=== PATIENT | male | born 1940 | race Caucasian/White ===

== ENCOUNTER 2018-03-25 17:21 | Inpatient (IN) ==
[2018-03-26] MEDS ORDERED: Acetaminophen 325 MG Tablet PO PRN (04:56)
--- NOTE | 2018-03-26 04:56 | P.HPIM ---
History of Present Illness Primary Care Physician: UNKNOWN History of Present Illness: 78-year-old male with a history of hyperlipidemia, hypertension and diabetes presented to the ED with complaints of a foot injury. Patient states that he was at work and using a saw and it kicked back and the saw ended up running over the dorsal side of his left foot. He is unable to move his left great toe. He states the pain is a throbbing, intermittent, 3/10, worse with touch and no associated symptoms. He denies any associated chest pain, shortness of breath, fever or chills. Patient states he takes about 20 medications but does not know the names and doses. Inpatient Certification: I certify that the inpatient services were ordered in accordance with Medicare regulations governing the order. This includes certification that hospital inpatient services are reasonable and necessary and in the case of services not specified as inpatient-only under 42 CFR 419.22(n), that they are appropriately provided as inpatient services in accordance to with the 2-midnight benchmark under 43 CFR 412.3(e) Review of Systems All other systems reviewed negative except as stated in HPI PMFSH - History History Provided By: Patient - Medical History Medical History: Medical History (Last Reviewed 03/26/18 @ 05:33 by HIRA Haynes) Chronic pain Hyperlipidemia Hypertension Neoplasm of head Type 2 diabetes mellitus - Surgical History Surgical History: Surgical History (Last Reviewed 03/26/18 @ 05:33 by HIRA Haynes) H/O hand surgery H/O knee surgery - Family History Family History: Family History (Last Reviewed 03/26/18 @ 05:33 by HIRA Haynes) Other HTN (hypertension) - Social History I have reviewed the patient's Social History: Yes - Tobacco History Second Hand Smoke Exposure: No Smoking Status: Never smoker - Alcohol History How Often Do You Have a Drink Containing Alcohol: Never - Substance Use History Substance History: No History of Abuse Medications and Allergies Allergies Allergy/AdvReac Type Severity Reaction Status Date / Time No Known Allergies Allergy Verified 03/26/18 04:50 Home Medications Medication Instructions Recorded Confirmed Type 20+ Medications 03/25/18 History Exam Narrative: GENERAL: This is a well-nourished, well-developed patient, in no apparent distress. SKIN: Laceration over 1st metatarsal joint on left foot, steri strips intact EYES: Pupils equal round and reactive, no scleral edema or drainage CARDIOVASCULAR: Regular rate and rhythm without murmurs, gallops, or rubs. RESPIRATORY: Clear to auscultation. Breath sounds equal bilaterally. No wheezes , rales, or rhonchi. GASTROINTESTINAL: Abdomen soft, non-tender, nondistended. Normal active bowel sounds MUSCULOSKELETAL: left great toe edema. no movement to left great toe NEURO: Alert & Oriented x4 to person, place, time, situation. Moves all ext x4 Caprini VTE Risk Assessment Caprini VTE Risk Assessment: Moderate/High Risk (score >= 2) Caprini Risk Assessment Model: Point Value = 1 Point Value = 2 Point Value = 3 Point Value = 5 Age 41-60 Minor surgery BMI > 25 kg/m2 Swollen legs Varicose veins or History of unexplained or recurrent spontaneous Oral contraceptives or hormone replacement Sepsis (< 1 month) Serious lung disease, including pneumonia (< 1 month) Abnormal pulmonary function Acute myocardial infarction Congestive heart failure (< 1 month) History of inflammatory bowel disease Medical patient at bed rest Age 61-74 Arthroscopic surgery Major open surgery (> 45 min) Laparoscopic surgery (> 45 min) Malignancy Confined to bed (> 72 hours) Immobilizing plaster cast Central venous access Age >= 75 History of VTE Family history of VTE Factor V Leiden Prothrombin [id number] Lupus anticoagulant Anticardiolipin antibodies Elevated serum homocysteine Heparin-induced thrombocytopenia Other congenital or acquired thrombophilia Stroke (< 1 month) Elective arthroplasty Hip, pelvis, or leg fracture Acute spinal cord injury (< 1 month) Prophylaxis Regimen: Total Risk Factor Score Risk Level Prophylaxis Regimen 0-1 Low Early ambulation 2 Moderate Order ONE of the following: *Sequential Compression Device (SCD) *Heparin 5000 units SQ BID 3-4 Higher Order ONE of the following medications: *Heparin 5000 units SQ TID *Enoxaparin/Lovenox 40 mg SQ daily (WT < 150 kg, CrCl > 30 mL/min) *Enoxaparin/Lovenox 30 mg SQ daily (WT < 150 kg, CrCl > 10-29 mL/min) *Enoxaparin/Lovenox 30 mg SQ BID (WT < 150 kg, CrCl > 30 mL/min) AND/OR *Sequential Compression Device (SCD) 5 or more Highest Order ONE of the following medications: *Heparin 5000 units SQ TID (Preferred with Epidurals) *Enoxaparin/Lovenox 40 mg SQ daily (WT < 150 kg, CrCl > 30 mL/min) *Enoxaparin/Lovenox 30 mg SQ daily (WT < 150 kg, CrCl > 10-29 mL/min) *Enoxaparin/Lovenox 30 mg SQ BID (WT < 150 kg, CrCl > 30 mL/min) AND *Sequential Compression Device (SCD) Assessment and Plan - Plan Left great toe laceration, possible tendon rupture Foot x-ray reviewed and shows no fracture Podiatry consulted, OR in a.m. N.p.o., IVF Pain management with IV morphine Ancef IV for antibiotics Hypertension, chronic We will resume home medications when med rec is updated Diabetes, chronic Accu-Cheks with sliding scale insulin DVT prophylaxis: SCDs Discussed Condition With: RN and patient
[2018-03-26] MEDS ORDERED: Dextrose 50% in Water 50 ML Vial IV.PUSH PRN (04:59)
[2018-03-26] MEDS ORDERED: Sod Chloride 0.9% Inj 1,000 ML IV.CONT SCH (05:00)
[2018-03-26] MEDS ORDERED: Chlorhexidine Gluconate 2% 1 Pack (2 Cloths) TOPICAL ONE (05:22)
[2018-03-26] MEDS ORDERED: Sodium Chlor 0.9% Inj 500 ML IV.SIG SCH (06:00)
[2018-03-26] MEDS: ceFAZolin Inj 2,000 MG in Sodium Chlor 0.9% Inj 80 ML IV.SIG SCH ×3 (06:50→22:53)
[2018-03-26] MEDS: Insulin NovoLOG Aspart Correctional Sugar Inj SQ SCH ×4 (08:00→21:12)
[2018-03-26] MEDS ORDERED: Lidocaine PF 1% Inj 5 ML Syringe INFILTRATN ONE (11:01)
[2018-03-26] MEDS ORDERED: Bupivacaine PF 0.25% Inj 30 ML Vial ONE (11:06)
[2018-03-26] MEDS ORDERED: Neomycin/Polymyxin G.U. Irrigant 1 ML Ampul ONE (11:08)
--- NOTE | 2018-03-26 11:40 | P.PN ---
Subjective Interval history: Patient is being evaluated immediately post-op. Pain is well controlled. Denies nausea and emesis. Desires D/C as soon as possible to be able to return home to care for his family. No other concerns. Physical Exam Vital signs: Vital Signs 03/26/18 05:05 03/26/18 08:00 Temperature 97.8 F 98.2 F Pulse Rate 58 L 58 L Respiratory Rate 18 18 Blood Pressure 142/56 H 150/68 H Pulse Oximetry 98 98 Intake & Output 03/25/18 03/26/18 03/26/18 18:59 06:59 18:59 Intake Total 100 / 100 Output Total 250 / 250 Balance -150 / -150 Weight 88.6 kg Intake: IV 100 / 100 Ancef Inj 2,000 MG In NS Inj 80 100 / 100 ML @ 200 mls/hr IV.SIG Q8H [facility] Rx#:[id number] Output: Urine 250 / 250 Other: # Voids 1 Date of Last Bowel Movement 03/25/18 03/25/18 Weight On Admission 88.6 kg Narrative: GENERAL: well nourished male, in NAD SKIN: Warm and dry. HEAD: Normocephalic. EYES: No scleral icterus. No injection or drainage. NECK: Supple, trachea midline. No JVD or lymphadenopathy. CARDIOVASCULAR: Regular rate and rhythm without murmurs, gallops, or rubs. RESPIRATORY: Breath sounds equal bilaterally. No accessory muscle use. GASTROINTESTINAL: Abdomen soft, non-tender, nondistended. MUSCULOSKELETAL: No cyanosis, or edema. BACK: Nontender without obvious deformity. No CVA tenderness. EXTREMITIES: L foot with brace in place, minimal edema. No cyanosis. Results - Labs Laboratory Results - last 24 hr 03/26/18 03/26/18 08:31 09:00 POC Glucose 92 Blood Type A Positive Blood Type Recheck Required Antibody Screen Negative - Imaging PER MRI OF L FOOT: Laceration/rupture of the extensor hallucis longus tendon at the level of the great toe MTP joint with approximately 3 cm retraction. Prominent surrounding dorsal soft tissue edema. Assessment and Plan - Assessment (1) Extensor tendon disruption Code(s): M67.89 - Other specified disorders of synovium and tendon, multiple sites Status: Resolved (2) HTN (hypertension) Code(s): I10 - Essential (primary) hypertension Status: Chronic (3) Diabetes type 2, uncontrolled Code(s): E11.65 - Type 2 diabetes mellitus with hyperglycemia Status: Chronic - Plan 78 y/o M with PMHx of DM, HTN, and HLD admitted for IP mgmt of Left Foot Extensor Tendon Disruption s/p surgical repair, POD#0, HD#1 1. POST OP CARE Managed by Ortho Manage pain with Morphine IV PRN Ancef IV for antibiotics started preop Appreciate assistance with mgmt 2. Hypertension, chronic: elevated as home meds were not continued, cont. home Lasix, Losartan, and Amlodipine. Cont. to monitor, asymptomatic. 3. Diabetes, Type II BS 92, cont. Home Galrgine 15U QHS, Glimepiride, and Accu-Cheks with sliding scale insulin 4. GERD: cont. home PPI 5. BPH: cont. home Alfuzosin. 6. Insomina: cont. hpme Trazodone. 7. HLD: cont. home statin 8. CPS: cont. Kevin and Methocarbamol 9. RLS: cont. home Pramipexole. 10. DVT prophylaxis: SCD's Code Status: full Discussed Condition With: patient
[2018-03-26] MEDS ORDERED: ceFAZolin 2 GM Premix Inj 2 GM/50 ML PIGGYBACK IV.SIG ONE (11:45)
[2018-03-26] MEDS ORDERED: fentaNYL Citrate Inj 100 MCG/2 ML Ampul ONE (12:05)
[2018-03-26] MEDS ORDERED: *morphine SULFATE 4 MG/ML PERIprocedure ONLY ONE (12:18)
--- NOTE | 2018-03-26 13:24 | MB ---
cc: Marleen Vidal DPM DATE: 03/26/2018 CHIEF COMPLAINT: Left foot laceration. HISTORY OF PRESENT ILLNESS: Mr. Krause is a 78-year-old male patient who presented to the emergency department last night and states that while he was working in his garage, a circular saw ran over the top of his foot and he has since been unable to move the great toe. He has minimal pain at this time. Denies any nausea, vomiting, fever, headaches or chills. PAST MEDICAL HISTORY: Includes chronic pain, hyperlipidemia, hypertension, neoplasm of the head and type 2 diabetes. PAST SURGICAL HISTORY: Includes an unknown hand and knee surgery. FAMILY HISTORY: Noncontributory. SOCIAL HISTORY: The patient denies any tobacco or alcohol abuse. Lives at home with family. VITAL SIGNS: Temperature 98.2, pulse rate 58, respiratory rate 18, blood pressure 150/68, pulse oximetry 98% O2 on room air. RADIOGRAPHIC DATA: X-rays are negative for any fractures. MRI report is pending, but shows a clear laceration of the EHL tendon. PHYSICAL EXAMINATION: The patient has palpable pulses. Capillary refill time is less than 3 seconds. Gross sensation is intact. There is an oblique laceration of the dorsal aspect of the metatarsophalangeal joint, which has been loosely reapproximated with stitches. The hallux is resting in a plantar flexed position. The patient is unable to dorsiflex or engage it. ASSESSMENT: Left foot extensor hallucis longus laceration. PLAN: 1. Surgical repair today. - N.p.o. - Consent signed. The procedure was explained. No guarantees given. - The patient will be nonweightbearing postoperatively and physical therapy will be ordered appropriately. JOYCE Kelly/ryan , 11:05 AM , 11:11 AM SHAYY
--- NOTE | 2018-03-26 15:43 | MP ---
cc: Marleen Vidal DPM DATE OF OPERATION: 03/26/2018 SURGEON: Marleen Vidal DPM TECHNOLOGY TRAINING ASSOCIATE: None. PREOPERATIVE DIAGNOSIS: Left extensor hallucis longus laceration. POSTOPERATIVE DIAGNOSIS: Left extensor hallucis longus laceration. PROCEDURE PERFORMED: Left extensor hallucis longus tendon repair. PATHOLOGY SENT: None. ANESTHESIA: General. HEMOSTASIS: Anatomical dissection. ESTIMATED BLOOD LOSS: 5 mL. MATERIALS USED: 4-0 FiberWire, 3-0 Prolene. COMPLICATIONS: None. INJECTABLES: None. INDICATIONS: Mr. Krause is a 78-year-old male patient who suffered a laceration of the extensor hallucis longus tendon with a circular saw. The tendon laceration was confirmed both clinically and on MRI. I spoke to the patient regarding the surgical repair as well as possible outcomes of the repair. The consent was signed. The procedure was explained. No guarantees were given. DESCRIPTION OF PROCEDURE: Under mild sedation, the patient was brought to the operating room and placed on the operating table in supine position. Following IV sedation, the foot was scrubbed, prepped and draped in the usual aseptic manner. Attention was directed to the dorsal aspect of the first metatarsophalangeal joint where an oblique laceration was noted. The sutures were removed and the area was cleansed with copious amounts of sterile saline. The distal stump of the extensor hallucis longus was easily identified; however, after thoroughly exploring the proximal aspect of the laceration and extending the laceration, the proximal stump could not be identified. The decision was made that extending the excision any farther without any clear signs of the proximal stump could create more complications. The extensor brevis tendon was intact, healthy and strong, so the decision was made to suture the distal stump of the extensor hallucis longus to the extensor brevis tendon. The toe was held in a rectus position throughout this portion of the procedure, and even once the toe was released, it remained in a neutral alignment without any signs of plantar flexion and no tension on the tendon. The area was again flushed with copious amounts of sterile saline. The skin was closed using 3-0 Prolene with minimal tension on the laceration line. A sterile dressing of Adaptic, 4 x 4's and a well-padded posterior splint were applied. The patient tolerated the procedure and the anesthesia well. He will recover in the PACU for a period of time before being discharged back to his room with written and oral postoperative instructions. JOYCE Kelly , 12:00 PM , 12:07 PM
--- NOTE | 2018-03-26 16:17 | MR ---
EXAM DATE: 03/26/2018 10:13 AM EDT AGE/SEX: 78 years / Male INDICATIONS: Trauma. Injury with a saw to dorsal left foot. Unable to move left great toe. CLINICAL DATA: This is the patient's initial encounter. Patient reports that signs and symptoms have been present for 1 day and indicates a pain score of 3/10. MEDICAL/SURGICAL HISTORY: Hypertension. Diabetes mellitus type II. Hypercholesterolemia. . Rodriguez nd and knee surgeries. COMPARISON: . TECHNIQUE: Multiplanar, multisequence MRI examination was performed without contrast. FINDINGS: Ill-defined dorsal superficial soft tissue edema. There is rupture of the extensor hallucis longus te ndon at the level of the metatarsophalangeal joint with retraction to the level of the mid metatarsal shaft. Tendon is retracted approximately 3 cm. All of the other visualized tendons are intact. Moderate-sized osteophytes of the great toe metatarsophalangeal joint and mild subchondral reactive b husam change of the great toe MTP joint. Mild osteoarthritic findings of the navicular cuneiform joint. Bone alignment within normal limits. No evidence of fracture. CONCLUSION: Laceration/rupture of the extensor hallucis longus tendon at the level of the great toe MTP joint wit h approximately 3 cm retraction. Prominent surrounding dorsal soft tissue edema. Electronically signed by: Karel Roach MD 03/26/2018 4:15 PM EDT
[2018-03-26] MEDS: Morphine Sulfate Inj 2 MG/ML Vial IV.PUSH PRN ×2 (17:47→22:52)
[2018-03-26] MEDS ORDERED: amLODIPine 5 MG Tablet PO ONE (19:15)
[2018-03-26] MEDS ORDERED: ALFUZOSIN PO SCH (19:30)
[2018-03-26] MEDS ORDERED: Furosemide 20 MG Tablet PO ONE (19:30)
[2018-03-26] MEDS ORDERED: Glimepiride 4 MG Tablet PO ONE ×2 (19:45)
[2018-03-26] MEDS ORDERED: Pantoprazole Sodium 20 MG DR Tablet PO ONE (19:45)
[2018-03-26] MEDS ORDERED: LOSARTAN 100 MG PO SCH (19:45)
[2018-03-26] MEDS ORDERED: MELATONIN 3 MG PO SCH (21:00)
[2018-03-26] MEDS ORDERED: Insulin Detemir Inj 1,000 UNIT/10 ML Vial SQ SCH (21:00)
[2018-03-26] MEDS ORDERED: traZODone 50 MG Tablet PO SCH (21:00)
[2018-03-26] MEDS ORDERED: Methocarbamol 500 MG Tablet PO SCH (21:00)
[2018-03-26] MEDS: Gabapentin 300 MG Capsule PO SCH (21:09)
[2018-03-27] MEDS: Sodium Chloride 0.45 % Inj 1,000 ML IV.CONT SCH ×3 (01:38→06:32)
[2018-03-27] MEDS: ceFAZolin Inj 2,000 MG in Sodium Chlor 0.9% Inj 80 ML IV.SIG SCH ×2 (05:48→14:30)
[2018-03-27] MEDS ORDERED: Glimepiride 4 MG Tablet PO SCH (07:00)
[2018-03-27] MEDS: Insulin NovoLOG Aspart Correctional Sugar Inj SQ SCH ×2 (08:09→12:21)
--- NOTE | 2018-03-27 08:32 | P.PNPOD ---
Subjective Interval history: Doing well no events overnight Physical Exam Vital signs: Vital Signs 03/26/18 11:58 03/26/18 12:00 03/26/18 16:00 Temperature 97.9 F 98 F 98.2 F Pulse Rate 66 78 65 Respiratory Rate 12 18 18 Blood Pressure 136/66 168/79 H 150/69 H Pulse Oximetry 100 96 98 03/26/18 20:00 03/26/18 20:05 03/27/18 00:06 Temperature 98.1 F Pulse Rate 69 76 64 Respiratory Rate 18 Blood Pressure 144/67 H Pulse Oximetry 99 03/27/18 00:25 03/27/18 02:00 03/27/18 05:23 Temperature 98.0 F 98.1 F Pulse Rate 68 65 Respiratory Rate 18 18 Blood Pressure 134/62 159/75 H Pulse Oximetry 95 98 Intake & Output 03/26/18 03/27/18 03/27/18 18:59 06:59 18:59 Intake Total 800 / 800 200 / 200 1050 / 1050 Output Total 510 / 510 950 / 950 Balance 290 / 290 -750 / -750 1050 / 1050 Intake: IV 200 / 200 200 / 200 1050 / 1050 Ancef Inj 2,000 MG In NS Inj 80 200 / 200 200 / 200 ML @ 200 mls/hr IV.SIG Q8H [facility] Rx#:[id number] Anesthesia Amount 600 / 600 Output: Urine 500 / 500 950 / 950 Estimated Blood Loss 10 Other: # Voids 1 Date of Last Bowel Movement 03/25/18 03/25/18 - Constitutional no acute distress - Neurological Alert and oriented x3 - Routine Extremities Exam Comments: Left lower extremity examined, splint clean dry and intact. Good capillary fill time noted to the digit good sensation intact no calf tenderness no swelling noted Medications and Allergies Active Medications: Active Medications Acetaminophen (Tylenol) 650 mg PO Q4H PRN PRN Reason: Temp > 100.4 Amlodipine Besylate (Norvasc) 5 mg PO DAILY [facility] Atorvastatin Calcium (Lipitor) 40 mg PO HS [facility] Last Admin: 03/26/18 21:09 Dose: 40 mg Dextrose (D50w Vial) 50 ml IV.PUSH UNSCH PRN PRN Reason: PER HYPOGLYCEMIA PROTOCOL Furosemide (Lasix) 20 mg PO DAILY [facility] Gabapentin (Neurontin) 600 mg PO BID [facility] Last Admin: 03/26/18 21:09 Dose: 600 mg Glimepiride (Amaryl) 4 mg PO DAILYAC [facility] Last Admin: 03/27/18 08:01 Dose: 4 mg Glucagon (Glucagon Inj) 1 mg OTHER PRN PRN PRN Reason: for Hypoglycemia Protocol Cefazolin Sodium 2,000 mg/ (Sodium Chloride) 100 mls @ 200 mls/hr IV.SIG Q8H [facility] Last Infusion: 03/27/18 06:32 Dose: Infused Sodium Chloride (1/2 Normal Saline Inj) 1,000 mls @ 84 mls/hr IV.CONT .[id number] [facility] Last Admin: 03/27/18 06:32 Dose: Not Given Sodium Chloride (Ns Inj) 500 mls @ 30 mls/hr IV.SIG .Q10H [facility] Last Admin: 03/27/18 01:39 Dose: Not Given Insulin Aspart (Novolog Insulin Correctional Sugar Inj) 0 unit SQ [facility]; Protocol Last Admin: 03/27/18 08:09 Dose: 2 unit Insulin Detemir (Levemir Inj) [address] [facility] Last Admin: 03/26/18 21:12 Dose: 15 unit Methocarbamol (Robaxin) [address] [facility] Last Admin: 03/26/18 21:18 Dose: Not Given Miscellaneous (Pill Splitter) 1 each OTHER UNSCH [facility] Miscellaneous Information (Mis Nursing Information) 0 each OTHER UNSCH PRN PRN Reason: SEE LABEL COMMENTS Stop: 03/27/18 11:58 Morphine Sulfate (Morphine Inj) 2 mg IV.PUSH Q3H PRN PRN Reason: pain 1 to 10 Last Admin: 03/26/18 22:52 Dose: 2 mg Ondansetron HCl (Zofran Inj) 4 mg IV.PUSH Q6H PRN PRN Reason: NAUSEA OR VOMITING Pantoprazole Sodium (Protonix) 20 mg PO DAILY [facility] Patient Own Medication(Alfuzosin ) 10mg 0 each PO DAILY [facility] Patient Own Medication(Losartan 100mg ) 0 each PO DAILY [facility] Patient Own Medication(Melatonin 3mg) 0 each PO HS [facility] Pramipexole Dihydrochloride (Mirapex) 0.[address] [facility] Last Admin: 03/26/18 21:11 Dose: 0.125 mg Trazodone HCl (Desyrel) 50 mg PO HS [facility] Last Admin: 03/26/18 21:10 Dose: 50 mg Allergies Allergy/AdvReac Type Severity Reaction Status Date / Time No Known Allergies Allergy Verified 03/26/18 04:50 Home Medications Medication Instructions Recorded Confirmed Type alfuzosin 1 tab PO DAILY 03/25/18 03/26/18 History amlodipine 5 mg PO DAILY 03/26/18 03/26/18 History atorvastatin 40 mg PO HS 03/26/18 03/26/18 History furosemide 20 mg PO DAILY 03/26/18 03/26/18 History gabapentin 600 mg PO BID 03/26/18 03/26/18 History glimepiride 4 mg PO DAILY [facility] 03/26/18 03/26/18 History insulin glargine 15 unit SUB-Q HS 03/26/18 03/26/18 History losartan 100 mg PO DAILY 03/26/18 03/26/18 History melatonin 3 mg PO HS 03/26/18 03/26/18 History methocarbamol 2 tab PO HS 03/26/18 03/26/18 History omeprazole 20 mg PO DAILY 03/26/18 03/26/18 History pramipexole 0.125 mg PO HS 03/26/18 03/26/18 History trazodone 50 mg PO HS 03/26/18 03/26/18 History Results - Labs Laboratory Results - last 24 hr 03/26/18 03/26/18 03/26/18 08:31 09:00 12:10 POC Glucose 92 88 Blood Type A Positive Blood Type Recheck Required Antibody Screen Negative 03/26/18 03/26/18 03/27/18 17:12 20:49 07:59 POC Glucose 340 H 288 H 172 H Blood Type Blood Type Recheck Antibody Screen - Imaging Impressions Foot MRI 03/26/18 00:00 CONCLUSION: Laceration/rupture of the extensor hallucis longus tendon at the level of the great toe MTP joint with approximately 3 cm retraction. Prominent surrounding dorsal soft tissue edema. Assessment and Plan - Assessment (1) Extensor tendon disruption Code(s): M67.89 - Other specified disorders of synovium and tendon, multiple sites Status: Resolved - Plan Status post EHL repair, okay to DC home once stable per medicine recommend anticoagulation medication. Patient has p.o. pain meds at home. Recommend oral antibiotic Keflex 500 mg 3 times a day for 1 week, nonweightbearing, no bandage change, follow-up with Dr. Vidal 1 week
[2018-03-27] MEDS ORDERED: amLODIPine 5 MG Tablet PO SCH (09:00)
[2018-03-27] MEDS ORDERED: Furosemide 20 MG Tablet PO SCH (09:00)
[2018-03-27] MEDS ORDERED: Pantoprazole Sodium 20 MG DR Tablet PO SCH (09:00)
[2018-03-27] MEDS: Gabapentin 300 MG Capsule PO SCH (09:20)
[2018-03-27 09:50] LABS: Baso % (Auto) 0.4 % (0.0-2.0); Eos % (Auto) 0.3 % (0.0-4.0); Hematocrit 33.9 % (39.0-51.0); Hemoglobin 11.5 gm/dL (13.0-17.0); Lymph # (Auto) 1.9 th/mm3 (1.0-4.8); Lymph % (Auto) 23.6 % (9.0-44.0); Mean Corpuscular HGB Conc 33.9 % (32.0-36.0); Mean Corpuscular Hemoglobin 29.7 pg (27.0-34.0); Mean Corpuscular Volume 87.7 fL (80.0-100.0); Mean Platelet Volume 9.3 fL (7.0-11.0); Mono # (Auto) 0.6 th/mm3 (0.0-0.9); Mono % (Auto) 7.9 % (0.0-8.0); Neut # (Auto) 5.5 th/mm3 (1.8-7.7); Neut % (Auto) 67.8 % (16.0-70.0); Platelet Count 171 th/mm3 (150-450); Red Blood Count 3.86 mil/mm3 (4.50-5.90); Red Cell Distribution Width 14.2 % (11.6-17.2); White Blood Count 8.1 th/mm3 (4.0-11.0)
[2018-03-27 10:13] LABS: Calcium 8.6 mg/dL (8.5-10.1); Carbon Dioxide 26.6 meq/L (21.0-32.0); Potassium 3.9 meq/L (3.5-5.1)
--- NOTE | 2018-03-27 11:39 | P.DS ---
Date of admission: 03/26/18 04:39 Primary care physician: UNKNOWN Attending physician on discharge: Sherry Vickers Anticipated date of discharge: 03/27/18 Brief History from admission: 78-year-old male with a history of hyperlipidemia, hypertension and diabetes presented to the ED with complaints of a foot injury. Patient states that he was at work and using a saw and it kicked back and the saw ended up running over the dorsal side of his left foot. He is unable to move his left great toe. He states the pain is a throbbing, intermittent, 3/10, worse with touch and no associated symptoms. He denies any associated chest pain, shortness of breath, fever or chills. Patient states he takes about 20 medications but does not know the names and doses. Patient update on day of discharge: Pt reports he is feeling well and pain is controlled. Ready to go home. Denies CP, SOB. Tolerating PO. No N/V. DS: Medications - Discharge Medications Prescriptions: cephalexin [Keflex] 500 mg PO TID #21 cap rivaroxaban [Xarelto] 10 mg PO DAILY #14 tab DS: Summary Hospital Course: 78-year-old male with a history of HTN, HLD, and DM admitted on 03/26 after a circular saw landed on the dorsum of his left foot. He sustained a EHL tendon rupture. Podiatry was consulted and patient went underwent repair on . Postoperatively he did well and was discharged in stable condition on . On discharge podiatry recommended a course of Keflex as well as Xarelto for DVT prophylaxis. - Time Spent with Patient Total time spent providing and/or coordinating discharge services: Less than 30 minutes - Quality: VTE Deep Vein Thrombosis/Pulmonary Embolism Present on Admission: No Exam Vital signs: Vital Signs 03/26/18 11:58 03/26/18 12:00 03/26/18 16:00 Temperature 97.9 F 98 F 98.2 F Pulse Rate 66 78 65 Respiratory Rate 12 18 18 Blood Pressure 136/66 168/79 H 150/69 H Pulse Oximetry 100 96 98 03/26/18 20:00 03/26/18 20:05 03/27/18 00:06 Temperature 98.1 F Pulse Rate 69 76 64 Respiratory Rate 18 Blood Pressure 144/67 H Pulse Oximetry 99 03/27/18 00:25 03/27/18 02:00 03/27/18 05:23 Temperature 98.0 F 98.1 F Pulse Rate 68 65 Respiratory Rate 18 17 18 Blood Pressure 134/62 159/75 H Pulse Oximetry 95 98 03/27/18 08:00 Temperature 97.7 F Pulse Rate 80 Respiratory Rate 16 Blood Pressure 120/65 Pulse Oximetry 94 L Intake & Output 03/26/18 03/27/18 03/27/18 18:59 06:59 18:59 Intake Total 800 / 800 200 / 200 1050 / 1050 Output Total 510 / 510 950 / 950 Balance 290 / 290 -750 / -750 1050 / 1050 Intake: IV 200 / 200 200 / 200 1050 / 1050 Ancef Inj 2,000 MG In NS Inj 80 200 / 200 200 / 200 ML @ 200 mls/hr IV.SIG Q8H CIPRIANO Rx#:[id number] Anesthesia Amount 600 / 600 Output: Urine 500 / 500 950 / 950 Estimated Blood Loss Other: # Voids 1 Date of Last Bowel Movement 03/25/18 03/25/18 Narrative: GENERAL: WN, WD pleasant male resting in bed in NAD. SKIN: Warm and dry. HEENT: AT/NC. Pupils equal and round. MMM. HEART: Distant heart sounds but otherwise RRR no m/r/g. LUNGS: CTAB without wheezes or crackles. ABDOMEN: +BS, soft, NT, ND. EXTREMITIES: LLE in splint. Neurovascular intact. Able to wiggle toes. NEURO: Awake and alert. Nonfocal. Results Procedures completed during hospitalization: 03/26/18: Left extensor hallucis longus tendon repair Labs on day of discharge: Labs from last 24 hours 03/27/18 03/27/18 03/27/18 09:06 09:06 07:59 WBC 8.1 RBC 3.86 L Hgb 11.5 L Hct 33.9 L MCV 87.7 MCH 29.7 MCHC 33.9 RDW 14.2 Plt Count 171 MPV 9.3 Neut % (Auto) 67.8 Lymph % (Auto) 23.6 [place] % (Auto) 7.9 Eos % (Auto) 0.3 Baso % (Auto) 0.4 Neut # (Auto) 5.5 Lymph # (Auto) 1.9 [place] # (Auto) 0.6 Eos # (Auto) 0.0 Baso # (Auto) 0.0 WBC Differential . Differential Comment Auto diff final Sodium 143 Potassium 3.9 Chloride 107 Carbon Dioxide 26.6 Anion Gap 9 BUN 23 H Creatinine 1.69 H Estimated GFR 40 L POC Glucose 172 H Random Glucose 160 H Calcium 8.6 03/26/18 03/26/18 03/26/18 20:49 17:12 12:10 WBC RBC Hgb Hct MCV MCH MCHC RDW Plt Count MPV Neut % (Auto) Lymph % (Auto) [place] % (Auto) Eos % (Auto) Baso % (Auto) Neut # (Auto) Lymph # (Auto) [place] # (Auto) Eos # (Auto) Baso # (Auto) WBC Differential Differential Comment Sodium Potassium Chloride Carbon Dioxide Anion Gap BUN Creatinine Estimated GFR POC Glucose 288 H 340 H 88 Random Glucose Calcium - Impressions ITS Impressions Foot MRI 03/26/18 00:00 CONCLUSION: Laceration/rupture of the extensor hallucis longus tendon at the level of the great toe MTP joint with approximately 3 cm retraction. Prominent surrounding dorsal soft tissue edema. Discharge Plan - Discharge Disposition Patient Disposition: 01 Discharge Home - Discharge Condition Condition: Stable - Discharge Order Discharge Orders: Discharge Order (Routine); Ordered 03/27/18 Ordered By: Sherry Vickers - Discharge Details Anticipated Discharge Date: 03/27/18 - Physicians Team Primary Care Provider: UNKNOWN, Attending Provider: Sherry Vickers Other Providers: Evie Trotter DPM - Rxs /Orders / Referrals /Forms Prescriptions: New cephalexin [Keflex] 500 mg Capsule 500 mg PO TID Qty: 21 RF: 0 rivaroxaban [Xarelto] 10 mg Tablet 10 mg PO DAILY Qty: 14 RF: 0 Continue alfuzosin 10 mg Tablet Extended Release 24 Hr 1 tab PO DAILY amlodipine 5 mg Tablet 5 mg PO DAILY atorvastatin 40 mg Tablet 40 mg PO HS furosemide 20 mg Tablet 20 mg PO DAILY gabapentin 600 mg Tablet 600 mg PO BID glimepiride 4 mg Tablet 4 mg PO DAILY NEB insulin glargine 100 unit/mL (3 mL) Insulin Pen 15 unit Sub-Q HS losartan 100 mg Tablet 100 mg PO DAILY melatonin 3 mg Tablet 3 mg PO HS methocarbamol 500 mg Tablet 2 tab PO HS omeprazole 20 mg Capsule,Delayed Release(Dr/Ec) 20 mg PO DAILY pramipexole 0.125 mg Tablet 0.125 mg PO HS trazodone 50 mg Tablet 50 mg PO HS Referrals: Gillian LONG [Other] - See Instructions UNKNOWN, [Primary Care Provider] - See Instructions - Discharge Instructions Patient Printed Instructions: Tendon Repair (DC) Additional Instructions: diabetic diet as tolerated non weight bearing to the left leg do not change dressing do not drive shower only take medication as prescribed follow up with MD as instructed - Post Discharge Care Plan Care Plan Goals: Your Health Problems: Left extensor tendon disruption Goals to Promote Your Health: * To prevent worsening of your condition * To maintain your health at the optimal level Directions to Meet Your Goals: * Take your medications as prescribed * Follow your dietary instruction * Follow activity as directed - nonweightbearing * Keep your appointments as scheduled * Take your immunizations and boosters as scheduled * If your symptoms worsen call your PCP * If no PCP go to Urgent Care or Emergency Room Smoking is dangerous to your health. Avoid second hand smoke. You may reach the 24-hour crisis hotline for domestic abuse at .
[2018-03-27 13:15] VITALS: BP 158/70; PULSE 64; RESP 18; TEMP 97.5; O2SAT 100
== END 2018-03-27 15:11 | disposition home or self-care (01) ==
LOC: NEDDLT 17:21 → N06 03-26 04:39
PROVIDERS: ADMIT Family Medicine; ATTEND Family Medicine